=== PATIENT | female | born 1950 | race Caucasian/White ===

== ENCOUNTER 2018-10-28 10:35 | Emergency (ER) | payer MEDICARE ==
[~2018-10-28] VITALS: Ht 162.6 cm; Wt 70.9 kg
[~2018-10-28 10:35] MED LIST: ALBU8HFA PO
[2018-10-28 10:47] VITALS: BP 146/73
[2018-10-28] MEDS ORDERED: ERYT1OIN6 EACHEYE (12:54)
[2018-10-28] MEDS ORDERED: CEPH250T PO (12:54)
== END 2018-10-28 13:14 | disposition home or self-care (01) ==
LOC: ER 10:36
DX: H00.011 Hordeolum externum right upper eyelid (principal); I10 Essential (primary) hypertension; Z88.2 Allergy status to sulfonamides; Z88.8 Allergy status to other drugs, medicaments and biological substances; Z79.2 Long term (current) use of antibiotics; Z79.899 Other long term (current) drug therapy
CPT/HCPCS: 99283